=== PATIENT | female | born 1960 | race Caucasian/White ===

== ENCOUNTER 2024-05-27 08:15 | Emergency (ER) | payer OTHER, SELFPAY ==
--- NOTE | 2024-05-27 08:21 | ED.GENMED ---
ED Provider Triage
<Anmol Watt PA-C - Last Filed: 05/27/24 08:26>
-
Patient seen by provider in Triage?: Seen in Triage
Attestation: A medical screening examination has been initiated by a qualified medical provider. Based on the assessment performed at this time, it has been determined that an emergent medical condition may exist and the patient has been informed
that further medical evaluation and possible additional diagnostic testing may be needed.
HPI:
GENERAL: Alert , in no apparent distress
EYE: No visual abnormalities.
NECK: Trachea midline
ENT: No visible abnormalities.
LUNGS: No acute respiratory distress
NEUROLOGICAL: Alert and oriented
SKIN: Skin intact. No visible changes.
MUSCULOSKELETAL: Moving extremities normally
PSYCH: Normal and appropriate interaction.
This is a medical evaluation conducted in person to initiate diagnostic evaluation and provide initial therapeutics. Please see further documentation by the treating clinician.
History of Present Illness
<Anmol Watt PA-C - Last Filed: 05/27/24 08:26>
General
Chief Complaint: Fall
Time Seen by Provider: 05/27/24 08:55
<Bao Alexis Jr., PA-C - Last Filed: 05/27/24 10:35>
General
Source: patient
Exam Limitations: none
Nursing documentation reviewed up to this point in time: agreed with
History of Present Illness
History of Present Illness:
64-year-old female presenting with concerns of left lateral posterior rib discomfort after slight fall 5 days ago. Ongoing pain to the area. Denies any shortness of breath chest pain nausea vomiting. Not on blood thinners.
Past History
<Anmol Watt PA-C - Last Filed: 05/27/24 08:26>
Past History
ED Past Medical History: Psychiatric (anxiety)
ED Past Surgical History: None
Social History
Tobacco: Non-smoker
Alcohol: Binge drinker
Drug: None
Personal:
Living: with family
Employment: Not employed
Family History
Family History: Other (Noncontributory)
Review of Systems
<Bao Alexis Jr., PA-C - Last Filed: 05/27/24 10:35>
Review of Systems
Allergies reviewed?: Yes
All Other Systems: ROS reviewed and negative except as documented in HPI and ROS
Phy Exam
<Bao Alexis Jr., PA-C - Last Filed: 05/27/24 10:35>
Physical Exam
Physical Exam:
GENERAL: Alert , in no apparent distress
EYE: pupils equal and reactive
NECK: Supple, no significant adenopathy.
ENT: o/p clr, mmm.
CARDIAC: Regular rate and rhythm .
LUNGS: Discomfort to the left lateral posterior rib that roughly C7 or 8 level. Clear breath sounds bilaterally, no acute respiratory distress, no wheezes/rales/rhonchi
ABDOMEN: Soft, without focal tenderness, no r/g, no cvat
NEUROLOGICAL: Alert and oriented, no focal neuro deficits
SKIN: Warm and dry, skin intact.
MUSCULOSKELETAL: No edema, well perfused.
PSYCH: Normal and appropriate interaction.
Course
<Anmol Watt PA-C - Last Filed: 05/27/24 08:26>
Orders/Labs/Results
Orders:
Orders
05/27/24 08:25
CR Ribs-left 3 Vw W/pa Chest Urgent
Comment:
Reason For Exam: fall, cough, chest pain
05/27/24 09:58
Ketorolac [Toradol] 30 mg IM NOW STA
Incentive Spirometry [Rx Incentive Spirometry] [RESP] Urgent
Frequency: q1h while awake
Vital Signs
Initial and Last Documented VS:
Initial Vital Signs
Temp Pulse Resp BP Pulse Ox
97.7 F 78 20 171/88 96
05/27/24 08:33 05/27/24 08:33 05/27/24 08:33 05/27/24 08:33 05/27/24 08:33
Last Documented Vital Signs
Temp Pulse Resp BP Pulse Ox
97.7 F 78 20 171/88 96
05/27/24 08:33 05/27/24 08:33 05/27/24 08:33 05/27/24 08:33 05/27/24 08:33
<Bao Alexis Jr., PA-C - Last Filed: 05/27/24 10:35>
Orders/Labs/Results
Orders:
Orders
05/27/24 08:25
CR Ribs-left 3 Vw W/pa Chest Urgent
Comment:
Reason For Exam: fall, cough, chest pain
05/27/24 09:58
Ketorolac [Toradol] 30 mg IM NOW STA
Incentive Spirometry [Rx Incentive Spirometry] [RESP] Urgent
Frequency: q1h while awake
Vital Signs
Initial and Last Documented VS:
Initial Vital Signs
Temp Pulse Resp BP Pulse Ox
97.7 F 78 20 171/88 96
05/27/24 08:33 05/27/24 08:33 05/27/24 08:33 05/27/24 08:33 05/27/24 08:33
Last Documented Vital Signs
Temp Pulse Resp BP Pulse Ox
97.7 F 78 20 171/88 96
05/27/24 08:33 05/27/24 08:33 05/27/24 08:33 05/27/24 08:33 05/27/24 08:33
<Bao Alexis Jr., PA-C - Last Filed: 05/27/24 10:35>
MDM/Problems Addressed
MDM/Problems Addressed:
64-year-old female presenting to the emergency department today with concerns of left lateral posterior rib discomfort after a fall while shoveling snow 5 days ago. Denies significant shortness of breath or chest pain. Here blood pressure elevated
otherwise vital signs are normal. Lungs are clear on examination heart sounds are normal. No pain over the abdomen. X-ray showing 1 posterior rib fracture to the eighth rib. Likely explaining symptoms. No signs of complication. Plan to treat
with incentive spirometer and otherwise stable for outpatient management. Return precautions given.
<Bao Alexis Jr., PA-C - Last Filed: 05/27/24 10:35>
*Critical Care Note
Total Time (30-74mins, 75-104mins- exclusive of procedures): Not Applicable
ED Attending Note
<Anmol Watt PA-C - Last Filed: 05/27/24 08:26>
-
Portions of this chart may have been created with voice recognition software.� Occasional wrong word or��sound alike� substitutions may have occurred due to the inherent limitations of voice recognition software.
Discharge Plan
Departure
Patient Disposition: Home (Routine Discharge)
Date of Disposition: 05/27/24
Time of Disposition: 10:33
Patient with high blood pressure during this ER visit?: No
Condition: Good
Covid-19: Not Applicable
Discharge Problem:
Fracture of rib
Instructions: Rib injury in adults
Prescriptions:
New
oxycodone-acetaminophen [Percocet] 5-325 mg tablet
1 tab PO Q8H PRN (Reason: Pain) Qty: 5 0RF
No Action
lorazepam 1 MG tablet
1 mg PO Q6HPRN PRN (Reason: anxiety ,agitation) Qty: 24 0RF
meclizine 25 MG tablet
25 mg PO QIDPRN PRN (Reason: dizziness) Qty: 30 0RF
Referrals:
Sherrie Foster MD [Family Provider] -
Activity Restrictions/Additional Instructions:
You came to the emergency department today for concerns of a rib fracture. Please take the prescribed medication and follow-up closely as an outpatient. Please use the incentive spirometer to avoid any lung injury in the future. Return for any
worsening, new or concerning symptoms.
Interventions
Interventions:
*Risk Screen - Suicide Last Done: 05/27/24 08:33
*General Assessment Last Done: 05/27/24 08:33
*Neglect/Abuse Screening Last Done: 05/27/24 08:33
Discharge Date and Time
Print Language: ARMENIAN
[2024-05-27 08:33] VITALS: BP 171/88
[2024-05-27 10:45] VITALS: BP 148/72
[2024-05-27] MEDS: TORADOL 30 MG IM (10:45)
== END 2024-05-27 11:00 | disposition home or self-care (01) ==
LOC: EMR 08:15
PROVIDERS: EMERGENCY PHYSICIAN Emergency Medicine; FAMILY PHYSICIAN Internal Medicine
DX: S22.32XA Fracture of one rib, left side, initial encounter for closed fracture (principal); W19.XXXA Unspecified fall, initial encounter; F41.9 Anxiety disorder, unspecified
CPT/HCPCS: 99283; 96372; 71101